=== PATIENT | female | born 1970 | race Caucasian/White ===

== ENCOUNTER 2024-10-27 11:16 | Outpatient (RCR) | payer OTHER, SELFPAY ==
[2024-10-27 12:13] VITALS: BMI 22.8
== END 2025-01-10 09:41 | disposition home or self-care (01) ==
LOC: ANHDMC 11:16
PROVIDERS: Visit Provider Nurse Practitioner Family
DX: K52.9 Noninfective gastroenteritis and colitis, unspecified (principal); Z71.3 Dietary counseling and surveillance
CPT/HCPCS: 97802